=== PATIENT | male | born 1985 | race Caucasian/White ===

== ENCOUNTER 2017-04-21 10:52 | Emergency (ER) | payer OTHER ==
[~2017-04-21] VITALS: Ht 172.7 cm; Wt 68.8 kg
[2017-04-21 10:53] VITALS: BP 138/81
[2017-04-21] MEDS ORDERED: IBUPROFEN 200 MG TABLET ONE (11:18)
[2017-04-21] MEDS ORDERED: IBUPROFEN 200 MG TABLET PO ONE (11:30)
== END 2017-04-21 11:26 | disposition home or self-care (01) ==
LOC: ED 11:20
DX: K02.9 Dental caries, unspecified (principal); F17.210 Nicotine dependence, cigarettes, uncomplicated
CPT/HCPCS: 99283